=== PATIENT | male | born 1975 | race Caucasian/White ===

== ENCOUNTER 2017-02-12 14:23 | Outpatient (CLI) | payer MEDICAID | END 2017-02-12 14:24 | disposition critical access hospital (66) | LOC: EMS 14:23 | PROVIDERS: ATTEND Surgery | DX: R56.9 Unspecified convulsions (principal) | CPT/HCPCS: A0425; A0429 ==

== ENCOUNTER 2017-02-12 14:40 | Emergency (ER) | payer MEDICAID, OTHER ==
[2017-02-12 15:57] LABS: BASOPHILS # (AUTO) 0.1 10^3/uL (0.0-0.1); BASOPHILS % (AUTO) 2.1 %; EOSINOPHILS # (AUTO) 0.1 10^3/uL (0.0-0.7); EOSINOPHILS % (AUTO) 1.2 %; HGB - HEMOGLOBIN 13.1 g/dL (14.0-18.0); LYMPHOCYTES # (AUTO) 0.4 10^3/uL (1.5-3.5); MEAN CORPUSCULAR HEMOGLOBIN 33.6 pg (27.0-31.0); MEAN CORPUSCULAR HGB CONC 34.4 g/dL (32.0-36.0); MEAN CORPUSCULAR VOLUME 97.7 fL (80.0-94.0); MEAN PLATELET VOLUME 7.3 fL (7.4-11.4); MONOCYTES # (AUTO) 0.4 10^3/uL (0.0-1.0); MONOCYTES % (AUTO) 8.4 %; NEUTROPHILS # (AUTO) 3.4 10^3/uL (1.5-6.6); NEUTROPHILS % (AUTO) 78.3 %; RED BLOOD COUNT 3.89 10^6/uL (4.70-6.10); RED CELL DISTRIBUTION WIDTH 16.1 % (12.0-15.0); UNCORRECTED WHITE BLOOD COUNT 4.3 x10^3/uL; WHITE BLOOD COUNT 4.3 x10^3/uL (4.8-10.8)
[2017-02-12 16:06] LABS: CALCIUM 9.4 mg/dL (8.5-10.3); CREATININE 0.7 mg/dL (0.6-1.2); POTASSIUM 3.8 mmol/L (3.5-5.0)
[2017-02-12] MEDS ORDERED: LORazepam 2 MG/ML SYRINGE ONE (16:07)
[2017-02-12] MEDS ORDERED: MAGNESIUM SULFATE 2 GRAM 2 GM/50 ML BAG IV ONE (16:08)
[2017-02-12] MEDS ORDERED: SODIUM CHLORIDE FLUSH 0.9% 10 ML SYRINGE IVP ONE (16:08)
[2017-02-12] MEDS: MULTIVITAMIN 10 ML in SODIUM CHLORIDE 0.9% 1,000 ML IV STA (16:14)
[2017-02-12] MEDS: LORazepam 2 MG/ML SYRINGE IVP STA (16:14)
[2017-02-12] MEDS: MAGNESIUM SULFATE 2 GRAM 2 GM/50 ML BAG IV STA (16:15)
[2017-02-12] MEDS: THIAMINE INJ 100 MG, FOLIC ACID INJ 1 MG in SODIUM CHLORIDE 0.9% 100ML 100 ML IV STA (16:28)
[2017-02-12] MEDS: chlordiazePOXIDE 25 MG CAPSULE PO STA (17:47)
[2017-02-12] MEDS ORDERED: chlordiazePOXIDE 25 MG CAPSULE PO ONE (17:50)
--- NOTE | 2017-02-12 18:07 | ED Physician Documentation ---
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 denies: Headache, Head injury Endocrine: denies: Easy bruising / bleeding Immunocompromised: denies: Immunocompromised PD PAST MEDICAL HISTORY - Past Medical History Past Medical History: Yes Neuro: Seizure disorder - Past Surgical History Past Surgical History: No - Present Medications Home Medications: Ambulatory Orders Medication Instructions Recorded Confirmed chlordiazePOXIDE [Librium] 25 mg PO DAILY PRN #8 capsule 02/12/17 - Allergies Allergies/Adverse Reactions: Allergies Allergy/AdvReac Type Severity Reaction Status Date / Time No Known Drug Allergies Allergy Verified 02/12/17 14:53 - Social History Does the pt smoke?: Yes Smoking Status: Current every day smoker Does the pt drink ETOH?: Yes Does the pt have substance abuse?: Yes Substance Use and Type: Marijuana PD ED PE NORMAL - Vitals Vital signs reviewed: Yes (tachy shaky) - General General: Alert and oriented X 3 - HEENT HEENT: Atraumatic, PERRL - Neck Neck: No bony TTP - Cardiac Cardiac: RRR - Respiratory Respiratory: No respiratory distress, Clear bilaterally - Abdomen Abdomen: Soft, Non tender - Derm Derm: Normal color - Neuro Neuro: Alert and oriented X 3, No motor deficit, No sensory deficit, Normal speech Results - Vitals Vitals: Vital Signs - 24 hr 02/12/17 02/12/17 02/12/17 14:44 15:29 16:54 Temperature 37.1 C 37.1 C Heart Rate 114 H 93 81 Respiratory 18 16 16 Rate Blood Pressure 149/89 H 131/94 H 143/82 H O2 Saturation 96 97 97 02/12/17 17:23 Temperature 36.5 C Heart Rate 87 Respiratory 16 Rate Blood Pressure 146/94 H O2 Saturation 98 Oxygen O2 Source Room air - Labs Labs: Laboratory Tests 02/12/17 02/12/17 15:40 15:40 WBC 4.3 L RBC 3.89 L Hgb 13.1 L Hct 38.0 L MCV 97.7 H MCH 33.6 H MCHC 34.4 RDW 16.1 H Plt Count 123 L MPV 7.3 L Neut # 3.4 Lymph # 0.4 L [place] # 0.4 Eos # 0.1 Baso # 0.1 Absolute Nucleated RBC 0.00 Nucleated RBC % 0.0 Sodium 135 Potassium 3.8 Chloride 97 L Carbon Dioxide 22 Anion Gap 16.0 H BUN 13 Creatinine 0.7 Estimated GFR (MDRD) 124 Glucose 92 Calcium 9.4 Ethyl Alcohol 14.4 PD MEDICAL DECISION MAKING - ED course ED course: pt states he is uninsured and has no money care management / financial met with him and he is now signed up for Vidimax and reportedly will be effective to cover todays care gave banana bag and IV ativan and checked labs (nl) recommended pt be admitted but he prefers to go home on librium taper - says he has done so in the past he is hemodynamically stable and less shaky after benzos, no hallucinations and now he has insurance so he can get the meds Departure - Departure Disposition: 01 Home, Self Care Clinical Impression: Alcohol withdrawal seizure Qualifiers: Complication of substance-induced condition: uncomplicated Qualified Code(s): F10.230 - Alcohol dependence with withdrawal, uncomplicated Condition: Good Instructions: ED Seizure Alcohol Withdrawal Follow-Up: [facility] [Provider Group] [facility] [Provider Group] Prescriptions: chlordiazePOXIDE [Librium] 25 mg PO DAILY PRN #8 capsule PRN Reason: withdrawal symptoms Comments: I suggested you stay overnight in the hospital but your prefer to go home on medications to ease the withdrawal symptoms Take the medications as prescribed Do not drink alcohol while taking librium We provided you with a book of local resources to help you stop drinking Please return at any time if the symptoms become severe. Do not rive or operate machinery or climb trees/ladders/cliffs until all the symptoms have resolved and you are not needing medication Also your blood pressure was a little bit high and your blood counts *white blood cells, red blood cells, and platelets) were all a little bit low - please follow up with your primary care doctor to recheck your blood pressure and further evaluate your low blood counts. If you do not have a PMD, please call one of the community clinics to establish care Forms: Activity restrictions
[2017-02-12 18:30] VITALS: BP 150/90
== END 2017-02-12 18:38 | disposition home or self-care (01) ==
LOC: ED 14:40
DX: F10.230 Alcohol dependence with withdrawal, uncomplicated (principal); R03.0 Elevated blood-pressure reading, without diagnosis of hypertension; F17.200 Nicotine dependence, unspecified, uncomplicated
CPT/HCPCS: 36415; 80048; 80320; 85025; 96365; 96366; 96375; 99283; 99284

== ENCOUNTER 2017-11-14 16:38 | Emergency (ER) | payer MEDICAID ==
[2017-11-14] MEDS ORDERED: TETANUS/DIPHTHERIA/PERTUSSIS 0.5 ML SYRINGE IM ONE (16:48)
[2017-11-14] MEDS ORDERED: BUFFERED LIDOCAINE 10 ML SYRINGE SUBQ STA (16:48)
--- NOTE | 2017-11-14 16:51 | ED Physician Documentation ---
PD HPI HEAD INJURY - Stated complaint Stated Complaint: FACE LAC - History obtained from History obtained from: Patient, Family (mom) - History of Present Illness Mechanism of head injury: Other (42-year-old gentleman with a history of seizures, per the chart alcohol withdrawal seizures. He was at home today in a shed, he does not know what happened. All of a sudden he had blood coming down his face. He may or may not of falling or gotten hit by something. He really has no recollection of any accident.) Review of Systems Constitutional: reports: Reviewed and negative Cardiac: reports: Reviewed and negative Respiratory: reports: Reviewed and negative GI: reports: Reviewed and negative PD PAST MEDICAL HISTORY - Past Surgical History Past Surgical History: No - Present Medications Home Medications: Ambulatory Orders Medication Instructions Recorded Confirmed chlordiazePOXIDE [Librium] 25 mg PO Q6HR #30 capsule 05/18/17 - Allergies Allergies/Adverse Reactions: Allergies Allergy/AdvReac Type Severity Reaction Status Date / Time No Known Drug Allergies Allergy Verified 11/14/17 16:58 - Social History Does the pt smoke?: Yes Smoking Status: Current every day smoker Does the pt drink ETOH?: Yes Does the pt have substance abuse?: Yes - Immunizations Immunizations are current?: No - POLST Patient has POLST: No PD ED PE NORMAL - Vitals Vital signs reviewed: Yes - General General: Alert and oriented X 3, No acute distress, Other (He is slightly confused and very shaky, he appears to be in alcohol withdrawal but denies any recent alcohol.) - HEENT HEENT: PERRL, EOMI, Other (There is a 1.5 cm oblique laceration across the top of the nasal bridge with underlying tenderness but no deformity. There is blood in the mouth with a right-sided tongue laceration.) - Neck Neck: Supple, no meningeal sign, No bony TTP - Cardiac Cardiac: RRR, No murmur - Respiratory Respiratory: No respiratory distress, Clear bilaterally - Abdomen Abdomen: Normal bowel sounds, Soft, Non tender - Back Back: No CVA TTP, No spinal TTP - Derm Derm: Normal color, Warm and dry - Extremities Extremities: No edema, No calf tenderness / cord - Neuro Neuro: Alert and oriented X 3 (But slightly confused with poor recollection of the accident. He is shaky.) Eye Opening: Spontaneous Motor: Obeys Commands Verbal: Oriented GCS Score: 15 Results - Vitals Vitals: Vital Signs - 24 hr 11/14/17 11/14/17 11/14/17 16:45 17:38 18:28 Temperature 37 C 37.1 C Heart Rate 63 92 87 Respiratory 14 18 15 Rate Blood Pressure 153/99 H 139/89 H 153/88 H O2 Saturation 99 97 98 Oxygen O2 Source Room air - Labs Labs: Laboratory Tests 11/14/17 11/14/17 16:56 16:56 WBC 4.7 L RBC 3.91 L Hgb 13.3 L Hct 39.4 L MCV 100.8 H MCH 34.1 H MCHC 33.8 RDW 16.7 H Plt Count 127 L MPV 7.3 L Neut # (Auto) 3.5 Lymph # (Auto) 0.6 L [place] # (Auto) 0.4 Eos # (Auto) 0.0 Baso # (Auto) 0.1 Absolute Nucleated RBC 0.00 Nucleated RBC % 0.0 Sodium 134 L Potassium 3.5 Chloride 92 L Carbon Dioxide 24 Anion Gap 18.0 H BUN 9 Creatinine 0.8 Estimated GFR (MDRD) 106 Glucose 149 H Calcium 9.4 Total Bilirubin 1.0 AST 146 H ALT 96 H Alkaline Phosphatase 66 Total Protein 8.3 H Albumin 5.3 Globulin 3.0 Albumin/Globulin Ratio 1.8 Lipase 79 H Ethyl Alcohol < 5.0 - Rads (name of study) CT head, cervical spine, and facial bones Radiology: EMP read contemporaneously (DJD of the neck, lots of cavities with periapical abscesses and facial gas from the laceration without facial fracture. No head injury on CT.) Procedures - Laceration (location) Nasal bridge/face Length in cm: 1.5 Wound type: Curved Neurovascular status: Sensory intact, Motor intact, Vascular intact Anesthesia: Lidocaine 1%, With bicarb Wound Preparation: Chlorhexadine, Irrigated copiously NS Skin layer closure: Prolene, Interrupted, Size #-0 - enter number (6-0), Sutures - enter # (4) Other: Patient tolerated well, No complications, Neurovascular intact, Tetanus booster given Complexity: Simple PD MEDICAL DECISION MAKING - ED course ED course: 42-year-old gentleman with unrecollected trauma today, given the tongue laceration could be seizure. He has a history of alcohol withdrawal seizures but denies any recent drinking and he was asked several times about this and was persistent in his answers. He was advised not to drive for 6 months given the concern for seizure, the facial laceration was closed and relevant advanced imaging of the head, facial bones, and neck were without acute findings except for gas related to the nasal laceration, but also incidental findings including DJD of the neck and bad teeth which were discussed and follow-up advised. - Sepsis Event Vital Signs: Vital Signs - 24 hr 11/14/17 11/14/17 11/14/17 16:45 17:38 18:28 Temperature 37 C 37.1 C Heart Rate 63 92 87 Respiratory 14 18 15 Rate Blood Pressure 153/99 H 139/89 H 153/88 H O2 Saturation 99 97 98 Oxygen O2 Source Room air Departure - Departure Disposition: 01 Home, Self Care Clinical Impression: Elevated LFTs Altered mental status Qualifiers: Altered mental status type: transient alteration of awareness Qualified Code(s) : R40.4 - Transient alteration of awareness Head injury Qualifiers: Encounter type: initial encounter Qualified Code(s): S09.90XA - Unspecified injury of head, initial encounter Facial laceration Qualifiers: Encounter type: initial encounter Qualified Code(s): S01.81XA - Laceration without foreign body of other part of head, initial encounter Condition: Good Record reviewed to determine appropriate education?: Yes Instructions: ED Head Injury Closed Comments: No driving for 6 months as per state law as discussed. Call your doctor to arrange a follow-up appointment, make the next available appointment. In the interim, return anytime if worse or if new symptoms develop. Seems also reasonable to follow-up with a neurologist. Also a dentist. Discharge Date/Time: 11/14/17 18:28
[2017-11-14 17:04] LABS: BASOPHILS # (AUTO) 0.1 10^3/uL (0.0-0.1); BASOPHILS % (AUTO) 3.1 %; EOSINOPHILS % (AUTO) 0.6 %; HGB - HEMOGLOBIN 13.3 g/dL (14.0-18.0); LYMPHOCYTES # (AUTO) 0.6 10^3/uL (1.5-3.5); LYMPHOCYTES % (AUTO) 13.2 %; MEAN CORPUSCULAR HEMOGLOBIN 34.1 pg (27.0-31.0); MEAN CORPUSCULAR HGB CONC 33.8 g/dL (32.0-36.0); MEAN CORPUSCULAR VOLUME 100.8 fL (80.0-94.0); MEAN PLATELET VOLUME 7.3 fL (7.4-11.4); MONOCYTES # (AUTO) 0.4 10^3/uL (0.0-1.0); MONOCYTES % (AUTO) 9.2 %; NEUTROPHILS # (AUTO) 3.5 10^3/uL (1.5-6.6); NEUTROPHILS % (AUTO) 73.9 %; PLT - PLATELET COUNT 127 10^3/uL (130-450); RED BLOOD COUNT 3.91 10^6/uL (4.70-6.10); RED CELL DISTRIBUTION WIDTH 16.7 % (12.0-15.0); WHITE BLOOD COUNT 4.7 x10^3/uL (4.8-10.8)
[2017-11-14 17:14] LABS: ALBUMIN 5.3 g/dL (3.2-5.5); ALBUMIN/GLOBULIN RATIO 1.8 (1.0-2.2); ALKALINE PHOSPHATASE 66 IU/L (42-121); ALT ALANINE AMINOTRANSFERASE 96 IU/L (10-60); AST ASPARTATE AMINOTRANSFERASE 146 IU/L (10-42); BUN - BLOOD UREA NITROGEN 9 mg/dL (6-20); CALCIUM 9.4 mg/dL (8.5-10.3); CARBON DIOXIDE - CO2 24 mmol/L (21-32); CHLORIDE 92 mmol/L (101-111); CREATININE 0.8 mg/dL (0.6-1.2); GFR - MDRD 106 (>89); GLUCOSE 149 mg/dL (70-100); LIPASE 79 U/L (22-51); SODIUM 134 mmol/L (135-145); TOTAL PROTEIN 8.3 g/dL (6.7-8.2)
--- NOTE | 2017-11-14 17:47 | CT Report ---
Procedure Date: 11/14/2017 Accession Number: [id number] / [id number] Procedure: CT - Head W/O CPT Code: FULL RESULT: EXAM: CT HEAD EXAM DATE: 11/14/2017 05:19 PM. CLINICAL HISTORY: Head injury. Amnesia. Possible seizure. Laceration. Fall. COMPARISON: None. TECHNIQUE: Multiaxial CT images were obtained from the foramen magnum to the vertex. Reformats: Coronal. IV contrast: None. In accordance with CT protocol optimization, one or more of the following dose reduction techniques were utilized for this exam: automated exposure control, adjustment of mA and/or KV based on patient size, or use of iterative reconstructive technique. FINDINGS: Parenchyma: No intraparenchymal hemorrhage. No evidence of mass, midline shift, or CT findings of infarction. Welch-white differentiation is distinct. Extraaxial Spaces: Normal for age. No subdural or epidural collections identified. Ventricles: Normal in size and position. Sinuses and Orbits: Imaged paranasal sinuses, orbits, and mastoids show no significant abnormality. Bones: No evidence of fracture or calvarial defect. Other: Globes and orbits are unremarkable. Paranasal and inferior frontal soft tissue edema. IMPRESSION: 1. No acute intracranial abnormality is identified. 2. No acute fracture. RADIA
--- NOTE | 2017-11-14 17:57 | CT Report ---
Procedure Date: 11/14/2017 Accession Number: [id number] / [id number] Procedure: CT - Cervical Spine W/O CPT Code: FULL RESULT: EXAM: CT CERVICAL SPINE WITHOUT CONTRAST DATE: 11/14/2017 05:19 PM. HISTORY: Head inj, amnesia, ?sz. COMPARISONS: CT head and facial bones today. TECHNIQUE: Thin-section axial images were acquired of the cervical spine without contrast. Post-processing: Coronal and sagittal reformats. Other: None. In accordance with CT protocol optimization, one or more of the following dose reduction techniques were utilized for this exam: automated exposure control, adjustment of mA and/or KV based on patient size, or use of iterative reconstructive technique. FINDINGS: Alignment: No scoliosis or spondylolisthesis. Bones: No fracture or focal bone lesion from the craniocervical junction through C7-T1. Interspace Levels/Facets: Mild osteoarthritis of the pre-dens interval. Disk height loss and endplate osteophyte formation indicating degenerative disk disease which is mild at C3-C4, moderate at C4-C5, C5-C6, C6-C7, C7-T1. Mild multilevel facet and uncovertebral joint hypertrophy. Bony foraminal stenosis which is moderate on the left at C3-C4, moderate on the right at C4-C5, severe bilaterally at C5-C6, moderate bilaterally at C6-C7, mild bilaterally at C7-T1. Musculature: Normal. No fatty atrophy. Other: The paravertebral and prevertebral soft tissues are unremarkable. The lung apices are clear. IMPRESSION: 1. No fracture or subluxation from the craniocervical junction through C7-T1. 2. Moderate multilevel degenerative change as described above. RADIA
--- NOTE | 2017-11-14 18:12 | CT Report ---
Procedure Date: 11/14/2017 Accession Number: [id number] / [id number] Procedure: CT - Facial Bones W/O CPT Code: FULL RESULT: EXAM: CT MAXILLOFACIAL WITHOUT CONTRAST EXAM DATE: 11/14/2017 05:19 PM. CLINICAL HISTORY: Head inj, amnesia, ?nasal frx. Nasion laceration. COMPARISONS: CT head and cervical spine today. TECHNIQUE: Thin-section axial images were acquired of the face without contrast. Post-processing: Coronal and sagittal reformats. Other: None. In accordance with CT protocol optimization, one or more of the following dose reduction techniques were utilized for this exam: automated exposure control, adjustment of mA and/or KV based on patient size, or use of iterative reconstructive technique. FINDINGS: Soft Tissue: There is a small amount of soft tissue gas and soft tissue swelling at the nasion greatest to the left of midline. No radiopaque foreign body. Orbits: Symmetric and unremarkable. Bones: No facial bone fracture. Nasal bones are intact. There are fractures (presumably chronic) of bilateral teeth with root fragments remaining (teeth 2, 3, 5, 12, 13, 18, 19, 31. Also, there is a large 7 mm cavity involving the left maxillary second molar tooth (Tooth 15). There are periapical lucencies involving fractured teeth 2, 3, and 31. Temporomandibular Joints: The temporomandibular joints are symmetric and normally located. Sinuses: Normal. No mucosal thickening or fluid levels. Other: None. IMPRESSION: 1. Soft tissue gas at the nasion consistent with laceration. 2. No nasal or other facial bone fractures are identified. 3. Multiple likely chronic tooth fractures bilaterally as detailed above. Periapical lucencies which could reflect abscesses involving fractured teeth 2, 3, and 31. Large 7 mm dental cavity involving tooth 15. RADIA
[2017-11-14 18:30] VITALS: BP 153/88
== END 2017-11-14 18:28 | disposition home or self-care (01) ==
LOC: ED 16:38
DX: S01.21XA Laceration without foreign body of nose, initial encounter (principal); S01.512A Laceration without foreign body of oral cavity, initial encounter; S09.90XA Unspecified injury of head, initial encounter; W19.XXXA Unspecified fall, initial encounter; Y92.008 Other place in unspecified non-institutional (private) residence as the place of occurrence of the external cause; R40.4 Transient alteration of awareness; R94.5 Abnormal results of liver function studies; Z23 Encounter for immunization; Z86.69 Personal history of other diseases of the nervous system and sense organs; M47.892 Other spondylosis, cervical region; K02.9 Dental caries, unspecified; K04.7 Periapical abscess without sinus
CPT/HCPCS: 12011; 26750; 36415; 70450; 70486; 72125; 80053; 80320; 83690; 85025; 90471; 99283; 99284

== ENCOUNTER 2017-11-17 11:58 | Outpatient (CLI) | payer MEDICAID | END 2017-11-17 11:59 | disposition critical access hospital (66) | LOC: EMS 11:58 | PROVIDERS: ATTEND Surgery | DX: R56.9 Unspecified convulsions (principal) | CPT/HCPCS: A0425; A0429; A0999 ==

== ENCOUNTER 2017-11-17 12:06 | Emergency (ER) | payer MEDICAID ==
[2017-11-17 13:41] LABS: BASOPHILS % (AUTO) 0.3 %; EOSINOPHILS % (AUTO) 0.2 %; LYMPHOCYTES # (AUTO) 0.7 10^3/uL (1.5-3.5); MEAN CORPUSCULAR VOLUME 99.9 fL (80.0-94.0); MEAN PLATELET VOLUME 7.6 fL (7.4-11.4); MONOCYTES # (AUTO) 0.7 10^3/uL (0.0-1.0); MONOCYTES % (AUTO) 7.3 %; NEUTROPHILS # (AUTO) 8.1 10^3/uL (1.5-6.6); NEUTROPHILS % (AUTO) 85.2 %; PLT - PLATELET COUNT 153 10^3/uL (130-450); RED BLOOD COUNT 3.84 10^6/uL (4.70-6.10); RED CELL DISTRIBUTION WIDTH 16.4 % (12.0-15.0); WHITE BLOOD COUNT 9.5 x10^3/uL (4.8-10.8)
[2017-11-17 13:56] LABS: ALBUMIN 4.9 g/dL (3.2-5.5); ALBUMIN/GLOBULIN RATIO 1.4 (1.0-2.2); BILIRUBIN,TOTAL 1.1 mg/dL (0.2-1.0); MAGNESIUM 1.7 mg/dL (1.7-2.8); PHOSPHORUS 4.3 mg/dL (2.5-4.6); TOTAL PROTEIN 8.5 g/dL (6.7-8.2)
[2017-11-17 14:10] LABS: MUDS CUTOFF CONCENTRATIONS CUTOFF CONC BELOW:
[2017-11-17 14:13] LABS: BILIRUBIN,URINE NEGATIVE (NEGATIVE); GLUCOSE, URINE (UA) NEGATIVE (NEGATIVE); KETONES,URINE (UA) NEGATIVE (NEGATIVE); LEUKOCYTE ESTERASE, URINE NEGATIVE (NEGATIVE); NITRITE,URINE NEGATIVE (NEGATIVE); OCCULT BLOOD,URINE TRACE-INTA (NEGATIVE); PROTEIN,URINE 100 mg/dL (NEGATIVE); UROBILINOGEN,URINE 0.2 (NORMAL) E.U./dL (NORMAL)
--- NOTE | 2017-11-17 14:22 | CT Report ---
Procedure Date: 11/17/2017 Accession Number: [id number] / [id number] Procedure: CT - Head W/O CPT Code: FULL RESULT: EXAM: CT HEAD EXAM DATE: 11/17/2017 02:09 PM. CLINICAL HISTORY: Seizure, recent head trauma. COMPARISON: CT head, cervical spine and maxillofacial CT 11/14/2017.. TECHNIQUE: Multiaxial CT images were obtained from the foramen magnum to the vertex. Reformats: Coronal. IV contrast: None. In accordance with CT protocol optimization, one or more of the following dose reduction techniques were utilized for this exam: automated exposure control, adjustment of mA and/or KV based on patient size, or use of iterative reconstructive technique. FINDINGS: Parenchyma: No intraparenchymal hemorrhage. No evidence of mass, midline shift, or CT findings of infarction. Welch-white differentiation is distinct. Extraaxial Spaces: Normal for age. No subdural or epidural collections identified. Ventricles: Normal in size and position. Sinuses and Orbits: Imaged paranasal sinuses, orbits, and mastoids show no significant abnormality. Bones: No evidence of fracture or calvarial defect. Other: None. IMPRESSION: No acute intracranial abnormality. RADIA
[2017-11-17 14:25] LABS: AMPHETAMINE SCREEN,URINE NEGATIVE (NEGATIVE); BENZODIAZEPINES SCREEN, URINE NEGATIVE (NEGATIVE); CLARITY,URINE CLEAR (CLEAR); COCAINE SCREEN URINE NEGATIVE (NEGATIVE); METHADONE SCREEN, URINE NEGATIVE (NEGATIVE); METHAMPHETAMINES SCREEN, URINE NEGATIVE (NEGATIVE); OPIATE SCREEN, URINE NEGATIVE (NEGATIVE); OXYCODONE SCREEN, URINE NEGATIVE (NEGATIVE); PROPOXYPHENE SCREEN, URINE NEGATIVE (NEGATIVE); TRICYCLIC ANTIDEPRESSANT,URINE NEGATIVE (NEGATIVE)
[2017-11-17 14:30] LABS: BACTERIA,URINE None Seen /HPF (None Seen); CASTS, URINE 11-25 Hyaline Casts /LPF; MUCUS,URINE Few Strands; RBC,URINE 0-5 /HPF (0-5); SQUAMOUS EPITHELIAL CELL,UR RARE Squamous (<= Few)
--- NOTE | 2017-11-17 15:00 | ED Physician Documentation ---
PD HPI SEIZURE - Stated complaint Stated Complaint: SZ - Chief complaint Chief Complaint: Neuro - History obtained from History obtained from: Patient, EMS - History of Present Illness Timing - onset: Today Witnessed: Witnessed Number of seizures: Single Description of seizure activity: Generalized, Tonic clonic Injury during seizure: None History of seizures: Known seizure disorder, Prior EtOH wdrawal sz Contributing factors: No: Substance abuse, EtOH withdrawal, Benzo withdrawal Similar symptoms before: Work up / diagnostics, Treatment Recently seen: Not recently seen - Additional information Additional information: Patient is a 42 year old male with a known seizure disorder. According to patient and ems, patient had a witnessed seizure today while at work. the stated it lasted about 4 minutes and broke on its own. Patient was a little post ictal afterwards but on initial evaluation by me he was awake, alert and oriented. patient states that he is a recovering alcoholic but has not had a drink in 2 weeks. patient reports that his seizures in the past had either been due to alcohol withdrawal or not sleeping. Patient states that he currently is not sleeping well. Review of Systems Constitutional: denies: Fever, Chills Eyes: reports: Reviewed and negative Neurologic: reports: Seizure. denies: Altered mental status Immunocompromised: denies: Immunocompromised PD PAST MEDICAL HISTORY - Past Medical History Cardiovascular: None Respiratory: None Neuro: Seizure disorder Endocrine/Autoimmune: None GI: None : None HEENT: None Psych: None Musculoskeletal: None Derm: None - Past Surgical History Past Surgical History: No - Present Medications Home Medications: Ambulatory Orders Medication Instructions Recorded Confirmed chlordiazePOXIDE [Librium] 25 mg PO Q6HR #30 capsule 05/18/17 LORazepam [Ativan] 0.5 mg PO ONCE PRN #10 tablet 11/17/17 - Allergies Allergies/Adverse Reactions: Allergies Allergy/AdvReac Type Severity Reaction Status Date / Time No Known Drug Allergies Allergy Verified 11/14/17 16:58 - Social History Does the pt smoke?: Yes Smoking Status: Current every day smoker Does the pt drink ETOH?: Yes Does the pt have substance abuse?: Yes - Immunizations Immunizations are current?: No - POLST Patient has POLST: No PD ED PE NORMAL - Vitals Vital signs reviewed: Yes - General General: Alert and oriented X 3, No acute distress - Cardiac Cardiac: RRR - Respiratory Respiratory: No respiratory distress - Abdomen Abdomen: Soft - Extremities Extremities: No deformity - Neuro Neuro: Alert and oriented X 3, 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, No motor deficit, Normal speech Eye Opening: Spontaneous Motor: Obeys Commands Verbal: Oriented GCS Score: 15 PD ED PE EXPANDED - HEENT HEENT: Head injury (well healing laceration on patient's forehead) Results - Vitals Vitals: Vital Signs - 24 hr 11/17/17 11/17/17 12:07 14:06 Temperature 36.9 C 37.0 C Heart Rate 106 H 88 Respiratory 18 16 Rate Blood Pressure 143/100 H 110/85 H O2 Saturation 97 97 Oxygen O2 Source Room air - Labs Labs: Laboratory Tests 11/17/17 11/17/17 11/17/17 13:35 13:35 13:35 WBC 9.5 RBC 3.84 L Hgb 13.0 L Hct 38.3 L MCV 99.9 H MCH 34.0 H MCHC 34.0 RDW 16.4 H Plt Count 153 MPV 7.6 Neut # (Auto) 8.1 H Lymph # (Auto) 0.7 L [place] # (Auto) 0.7 Eos # (Auto) 0.0 Baso # (Auto) 0.0 Absolute Nucleated RBC 0.00 Nucleated RBC % 0.0 Sodium 133 L Potassium 4.3 Chloride 94 L Carbon Dioxide 27 Anion Gap 12.0 BUN 17 Creatinine 1.0 Estimated GFR (MDRD) 82 L Glucose 93 Calcium 10.0 Phosphorus 4.3 Magnesium 1.7 Total Bilirubin 1.1 H AST 159 H ALT 100 H Alkaline Phosphatase 60 Total Protein 8.5 H Albumin 4.9 Globulin 3.6 Albumin/Globulin Ratio 1.4 Lipase 52 H TSH 4.48 Urine Color Urine Clarity Urine pH Ur Specific [place] Urine Protein Urine Glucose (UA) Urine Ketones Urine Occult Blood Urine Nitrite Urine Bilirubin Urine Urobilinogen Ur Leukocyte Esterase Urine RBC Urine WBC Ur Squamous Epith Cells Urine Bacteria Urine Casts Urine Mucus Ur Microscopic Review Urine Culture Comments Urine Opiates Screen Ur Oxycodone Screen Urine Methadone Screen Ur Propoxyphene Screen Ur Barbiturates Screen Ur Tricyclics Screen Ur Phencyclidine Scrn Ur Amphetamine Screen U Methamphetamines Scrn U Benzodiazepines Scrn Urine Cocaine Screen U Cannabinoids Screen 11/17/17 14:04 WBC RBC Hgb Hct MCV MCH MCHC RDW Plt Count MPV Neut # (Auto) Lymph # (Auto) [place] # (Auto) Eos # (Auto) Baso # (Auto) Absolute Nucleated RBC Nucleated RBC % Sodium Potassium Chloride Carbon Dioxide Anion Gap BUN Creatinine Estimated GFR (MDRD) Glucose Calcium Phosphorus Magnesium Total Bilirubin AST ALT Alkaline Phosphatase Total Protein Albumin Globulin Albumin/Globulin Ratio Lipase TSH Urine Color YELLOW Urine Clarity CLEAR Urine pH 6.0 Ur Specific [place] 1.020 Urine Protein 100 H Urine Glucose (UA) NEGATIVE Urine Ketones NEGATIVE Urine Occult Blood TRACE-INTA Urine Nitrite NEGATIVE Urine Bilirubin NEGATIVE Urine Urobilinogen 0.2 (NORMAL) Ur Leukocyte Esterase NEGATIVE Urine RBC 0-5 Urine WBC 0-3 Ur Squamous Epith Cells RARE Squamous Urine Bacteria None Seen Urine Casts 11-25 Hyaline Casts Urine Mucus Few Strands Ur Microscopic Review INDICATED Urine Culture Comments NOT INDICATED Urine Opiates Screen NEGATIVE Ur Oxycodone Screen NEGATIVE Urine Methadone Screen NEGATIVE Ur Propoxyphene Screen NEGATIVE Ur Barbiturates Screen NEGATIVE Ur Tricyclics Screen NEGATIVE Ur Phencyclidine Scrn NEGATIVE Ur Amphetamine Screen NEGATIVE U Methamphetamines Scrn NEGATIVE U Benzodiazepines Scrn NEGATIVE Urine Cocaine Screen NEGATIVE U Cannabinoids Screen POSITIVE H - Rads (name of study) ct head Radiology: Final report received (no acute abnormality) PD MEDICAL DECISION MAKING - ED course Complexity details: reviewed old records, reviewed results, re-evaluated patient , considered differential, d/w patient ED course: Patient was seen and examined at bedside. IV access was gained and labs were drawn. due to the recent trauma imaging was ordered. When patient returned from imaging his diagnostics were reviewed. there was no acute abnormalities. A lengthy discussion was had with the patient concerning triggers. Patient stated that he did not want to start an agent at this time. patient required no further work up and was stable for discharge at this time. Patient had no seizure activity while in the emergency department. - Sepsis Event Vital Signs: Vital Signs - 24 hr 11/17/17 11/17/17 12:07 14:06 Temperature 36.9 C 37.0 C Heart Rate 106 H 88 Respiratory 18 16 Rate Blood Pressure 143/100 H 110/85 H O2 Saturation 97 97 Oxygen O2 Source Room air Departure - Departure Disposition: 01 Home, Self Care Clinical Impression: Seizure Condition: Good Instructions: ED Seizure Recurrent Follow-Up: primary,care provider [Other] - Within 3 Days Prescriptions: LORazepam [Ativan] 0.5 mg PO ONCE PRN #10 tablet PRN Reason: Seizure Comments: Your diagnostics today were within normal limits. Your seizures are becoming more frequent so it is important that you follow up with your doctor within the week. you have been prescribed ativan if you feel like you are going to have a seizure. you should make sure you get plenty of sleep, as not sleeping is one of the biggest triggers. you should return to the emergency department for repeat seizure activity.
[2017-11-17 15:21] VITALS: BP 115/85
== END 2017-11-17 15:21 | disposition home or self-care (01) ==
LOC: EDUNIT# → ED 12:06
DX: G40.909 Epilepsy, unspecified, not intractable, without status epilepticus (principal); F17.200 Nicotine dependence, unspecified, uncomplicated
CPT/HCPCS: 36415; 70450; 80053; 80306; 81001; 81003; 83690; 83735; 84100; 84443; 85025; 87086; 99283; 99284

== ENCOUNTER 2017-12-06 19:00 | Emergency (ER) | payer MEDICAID ==
[2017-12-06] MEDS ORDERED: LORazepam 0.5 MG TABLET PO STA (19:24)
--- NOTE | 2017-12-06 19:28 | ED Physician Documentation ---
PD HPI HEAD INJURY - Stated complaint Stated Complaint: LT EYE INJ - Chief complaint Chief Complaint: Neuro - History obtained from History obtained from: Patient, Family (mom) - History of Present Illness Mechanism of head injury: Other (42yo male with H/O Etoh W/D szs. Ran out of ativan rx (from ED) a few days ago and had sz today and hit L periorbital area and has a lac there. Tetanus unknown by pt, but UTD per MAR from prior visit.) Review of Systems Constitutional: denies: Fever, Chills Respiratory: denies: Dyspnea, Cough GI: denies: Abdominal Pain, Nausea, Vomiting PD PAST MEDICAL HISTORY - Past Medical History Cardiovascular: None Respiratory: None Neuro: Seizure disorder Endocrine/Autoimmune: None GI: None : None HEENT: None Psych: None Musculoskeletal: None Derm: None - Past Surgical History Past Surgical History: No - Present Medications Home Medications: Ambulatory Orders Medication Instructions Recorded Confirmed LORazepam [Ativan] 0.5 mg PO ONCE PRN #10 tablet 11/17/17 12/06/17 LORazepam [Ativan] 0.5 mg PO Q6H PRN #12 tablet 12/06/17 - Allergies Allergies/Adverse Reactions: Allergies Allergy/AdvReac Type Severity Reaction Status Date / Time No Known Drug Allergies Allergy Verified 12/06/17 19:19 - Social History Does the pt smoke?: Yes Smoking Status: Current every day smoker Does the pt drink ETOH?: Yes Does the pt have substance abuse?: Yes - Immunizations Immunizations are current?: No - POLST Patient has POLST: No PD ED PE NORMAL - Vitals Vital signs reviewed: Yes - General General: Alert and oriented X 3, No acute distress - HEENT HEENT: PERRL, EOMI, Other (1cm shallow lac upper lateral left eyelid There is some periorbital ecchymosis but absolutely no evidence of entrapment or facial bony tenderness.) - Neck Neck: Supple, no meningeal sign, No bony TTP - Neuro Neuro: Alert and oriented X 3, yield engineer 2-12 intact Eye Opening: Spontaneous Motor: Obeys Commands Verbal: Oriented GCS Score: 15 - Psych Psych: Normal mood, Normal affect Results - Vitals Vitals: Vital Signs - 24 hr 12/06/17 19:07 Temperature 37.5 C Heart Rate 90 Respiratory 17 Rate Blood Pressure 157/100 H O2 Saturation 100 Oxygen O2 Source Room air Procedures - Laceration (location) L eyelid Length in cm: 1 Wound type: Linear, Superficial Wound Preparation: Irrigated copiously NS Skin layer closure: Dermabond Other: Tetanus UTD Complexity: Simple PD MEDICAL DECISION MAKING - Sepsis Event Vital Signs: Vital Signs - 24 hr 12/06/17 19:07 Temperature 37.5 C Heart Rate 90 Respiratory 17 Rate Blood Pressure 157/100 H O2 Saturation 100 Oxygen O2 Source Room air Departure - Departure Disposition: 01 Home, Self Care Clinical Impression: Eyelid laceration, left Qualifiers: Encounter type: initial encounter Qualified Code(s): S01.112A - Laceration without foreign body of left eyelid and periocular area, initial encounter Benzodiazepine withdrawal Qualifiers: Complication of substance-induced condition: uncomplicated Qualified Code(s): F13.230 - Sedative, hypnotic or anxiolytic dependence with withdrawal, uncomplicated Condition: Good Record reviewed to determine appropriate education?: Yes Instructions: ED Laceration Facial Skin Glue Follow-Up: [facility] [Provider Group] Prescriptions: LORazepam [Ativan] 0.5 mg PO Q6H PRN #12 tablet PRN Reason: Anxiety Comments: Your blood pressure was elevated today on check into the emergency department. This does not mean that you have hypertension, it is a common phenomenon to come to the emergency department and have elevated blood pressure. I recommend that you see your primary care physician within the week to have it rechecked when you are feeling better. As discussed in the last visit, you are allowed to by state law to drive for the next 6 months due to seizure activity.
[2017-12-06 19:48] VITALS: BP 149/94
== END 2017-12-06 19:48 | disposition home or self-care (01) ==
LOC: ED 19:00
DX: S01.112A Laceration without foreign body of left eyelid and periocular area, initial encounter (principal); F13.230 Sedative, hypnotic or anxiolytic dependence with withdrawal, uncomplicated; W18.39XA Other fall on same level, initial encounter; R03.0 Elevated blood-pressure reading, without diagnosis of hypertension; F17.200 Nicotine dependence, unspecified, uncomplicated
CPT/HCPCS: 12011; 99283; A9270

== ENCOUNTER 2017-12-24 10:48 | Outpatient (CLI) | payer MEDICAID ==
[2017-12-24 18:46] LABS: BASOPHILS # (AUTO) 0.1 10^3/uL (0.0-0.1); BASOPHILS % (AUTO) 1.3 %; EOSINOPHILS % (AUTO) 0.6 %; HGB - HEMOGLOBIN 13.9 g/dL (14.0-18.0); LYMPHOCYTES # (AUTO) 1.7 10^3/uL (1.5-3.5); LYMPHOCYTES % (AUTO) 24.2 %; MEAN CORPUSCULAR HEMOGLOBIN 33.7 pg (27.0-31.0); MEAN CORPUSCULAR HGB CONC 33.8 g/dL (32.0-36.0); MEAN CORPUSCULAR VOLUME 99.8 fL (80.0-94.0); MEAN PLATELET VOLUME 6.9 fL (7.4-11.4); MONOCYTES # (AUTO) 0.5 10^3/uL (0.0-1.0); MONOCYTES % (AUTO) 7.7 %; NEUTROPHILS # (AUTO) 4.7 10^3/uL (1.5-6.6); NEUTROPHILS % (AUTO) 66.2 %; PLT - PLATELET COUNT 345 10^3/uL (130-450); RED BLOOD COUNT 4.13 10^6/uL (4.70-6.10); RED CELL DISTRIBUTION WIDTH 15.1 % (12.0-15.0); WHITE BLOOD COUNT 7.1 x10^3/uL (4.8-10.8)
[2017-12-24 19:14] LABS: ALBUMIN 4.7 g/dL (3.2-5.5); ALBUMIN/GLOBULIN RATIO 1.5 (1.0-2.2); BILIRUBIN,TOTAL 0.4 mg/dL (0.2-1.0); CALCIUM 9.2 mg/dL (8.5-10.3); CREATININE 0.7 mg/dL (0.6-1.2); TOTAL PROTEIN 7.9 g/dL (6.7-8.2)
[2017-12-24 19:22] LABS: THYROID STIMULATING HORMONE 2.44 uIU/mL (0.34-5.60)
[2017-12-24 19:34] LABS: FOLATE 10.95 ng/mL (5.90 - >24.8)
== END 2017-12-24 10:49 | disposition home or self-care (01) ==
LOC: LAB.N 10:48
PROVIDERS: ATTEND Physician Assistant Medical
DX: Z00.00 Encounter for general adult medical examination without abnormal findings (principal); F19.21 Other psychoactive substance dependence, in remission; R03.0 Elevated blood-pressure reading, without diagnosis of hypertension; Z72.0 Tobacco use; F10.11 Alcohol abuse, in remission
CPT/HCPCS: 36415; 80053; 82607; 82746; 84443; 85025

== ENCOUNTER 2019-11-07 12:33 | Outpatient (CLI) | payer MEDICAID | END 2019-11-07 12:34 | disposition critical access hospital (66) | LOC: EMS 12:33 | PROVIDERS: ATTEND Surgery | DX: R55 Syncope and collapse (principal) | CPT/HCPCS: A0425; A0429 ==

== ENCOUNTER 2019-11-07 13:24 | Emergency (ER) | payer MEDICAID ==
[2019-11-07] MEDS ORDERED: SODIUM CHLORIDE 0.9% 1,000 ML IV STA ×2 (13:33)
--- NOTE | 2019-11-07 13:38 | ED Physician Documentation ---
PD HPI ALTERED MENTAL STATUS - Stated complaint Stated Complaint: AMS - History obtained from History obtained from: Patient, Family, EMS - History of Present Illness Timing - onset: Today Timing - duration: Other (unknown) Timing - details: Now resolved Quality / character: Unresponsive Associated symptoms: Headache. No: Fever, Stiff neck, Dyspnea, Cough, NVD, Urinary sx Contributing factors: Substance abuse (alcohol, has had withdrawal seizures) Basline status: Alert and oriented X 3 Treatment CHIPS SCREEN TENDER: Other (none) Recently seen: Not recently seen - Additional information Additional information: 44-year-old male presents the emergency department with altered mental status today. The family states that they walked in and found him unconscious on the ground. Has a history of alcohol withdrawal seizures. Patient states that his last drink was 2 days ago. Nothing makes this better or worse. Has used Ativan in the past to help with withdrawal. He uses marijuana and cigarettes. Denies any trauma. He states he is having a headache. No nausea or vomiting. No diarrhea. No constipation. No numbness or tingling. Review of Systems Ten Systems: 10 systems reviewed and negative Constitutional: denies: Fever, Chills Ears: denies: Ear pain Nose: denies: Rhinorrhea / runny nose, Congestion Throat: denies: Sore throat Cardiac: denies: Chest pain / pressure GI: denies: Nausea, Vomiting, Diarrhea Skin: denies: Rash Musculoskeletal: denies: Neck pain, Back pain Neurologic: reports: Headache (Gradual onset, left-sided). denies: Focal weakness, Numbness, Head injury, LOC Psychiatric: denies: Depressed, Suicidal, Homicidal, Hallucinations, Delusions, Anxiety, Insomnia PD PAST MEDICAL HISTORY - Past Medical History Cardiovascular: None Respiratory: None Neuro: Seizure disorder Endocrine/Autoimmune: None GI: None : None HEENT: None Psych: None Musculoskeletal: None Derm: None - Past Surgical History Past Surgical History: No - Present Medications Home Medications: Ambulatory Orders Medication Instructions Recorded Confirmed LORazepam [Ativan] 0.5 mg PO ONCE PRN #10 tablet 11/17/17 12/06/17 LORazepam [Ativan] 0.5 mg PO Q6H PRN #12 tablet 12/06/17 - Allergies Allergies/Adverse Reactions: Allergies Allergy/AdvReac Type Severity Reaction Status Date / Time No Known Drug Allergies Allergy Verified 11/07/19 13:32 - Social History Does the pt smoke?: Yes Smoking Status: Current every day smoker Does the pt drink ETOH?: Yes Does the pt have substance abuse?: Yes - Immunizations Immunizations are current?: No - POLST Patient has POLST: No PD ED PE NORMAL - Vitals Vital signs reviewed: Yes - General General: Alert and oriented X 3, No acute distress, Well developed/nourished - HEENT HEENT: Moist mucous membranes - Neck Neck: Supple, no meningeal sign - Cardiac Cardiac: RRR, Strong equal pulses - Respiratory Respiratory: No respiratory distress, Clear bilaterally - Abdomen Abdomen: Soft, Non tender, Non distended - Derm Derm: Warm and dry, No rash - Extremities Extremities: No edema, No calf tenderness / cord - Neuro Neuro: Alert and oriented X 3 - Psych Psych: Normal mood, Normal affect Results - Vitals Vitals: Vital Signs - 24 hr 11/07/19 11/07/19 11/07/19 13:32 13:39 15:39 Temperature 37.0 C 37.0 C Heart Rate 89 89 77 Respiratory 16 15 20 Rate Blood Pressure 138/92 H 138/92 H 112/73 O2 Saturation 98 98 98 Oxygen O2 Source Room air - EKG (time done) 1331 Rate: Rate (enter#) (8) Rhythm: NSR Lackey: Normal Intervals: Normal OR QRS: Normal Ischemia: ST elevation c/w repol - Labs Labs: Laboratory Tests 11/07/19 11/07/19 11/07/19 13:55 13:55 13:55 WBC 5.1 RBC 3.98 L Hgb 13.0 L Hct 39.3 L MCV 98.7 H MCH 32.7 H MCHC 33.1 RDW 15.5 H Plt Count 323 MPV 8.6 Neut # (Auto) 2.6 Lymph # (Auto) 2.1 [place] # (Auto) 0.3 Eos # (Auto) 0.1 Baso # (Auto) 0.1 Absolute Nucleated RBC 0.00 Nucleated RBC % 0.0 Sodium 142 Potassium 3.8 Chloride 101 Carbon Dioxide 28 Anion Gap 13.0 BUN 10 Creatinine 0.9 Estimated GFR (MDRD) 91 Glucose 132 H Calcium 8.3 L Total Bilirubin 0.4 AST 35 ALT 21 Alkaline Phosphatase 58 Total Protein 7.1 Albumin 4.1 Globulin 3.0 Albumin/Globulin Ratio 1.4 Lipase 43 TSH 1.81 Urine Color Urine Clarity Urine pH Ur Specific [place] Urine Protein Urine Glucose (UA) Urine Ketones Urine Occult Blood Urine Nitrite Urine Bilirubin Urine Urobilinogen Ur Leukocyte Esterase Ur Microscopic Review Urine Culture Comments Salicylates < 6.0 Urine Opiates Screen Ur Oxycodone Screen Urine Methadone Screen Ur Propoxyphene Screen Acetaminophen < 10 L Ur Barbiturates Screen Ur Tricyclics Screen Ur Phencyclidine Scrn Ur Amphetamine Screen U Methamphetamines Scrn U Benzodiazepines Scrn Urine Cocaine Screen U Cannabinoids Screen Ethyl Alcohol 470.1 11/07/19 14:56 WBC RBC Hgb Hct MCV MCH MCHC RDW Plt Count MPV Neut # (Auto) Lymph # (Auto) [place] # (Auto) Eos # (Auto) Baso # (Auto) Absolute Nucleated RBC Nucleated RBC % Sodium Potassium Chloride Carbon Dioxide Anion Gap BUN Creatinine Estimated GFR (MDRD) Glucose Calcium Total Bilirubin AST ALT Alkaline Phosphatase Total Protein Albumin Globulin Albumin/Globulin Ratio Lipase TSH Urine Color YELLOW Urine Clarity CLEAR Urine pH 6.0 Ur Specific [place] <=1.005 Urine Protein NEGATIVE Urine Glucose (UA) NEGATIVE Urine Ketones NEGATIVE Urine Occult Blood NEGATIVE Urine Nitrite NEGATIVE Urine Bilirubin NEGATIVE Urine Urobilinogen 0.2 (NORMAL) Ur Leukocyte Esterase NEGATIVE Ur Microscopic Review NOT INDICATED Urine Culture Comments NOT INDICATED Salicylates Urine Opiates Screen NEGATIVE Ur Oxycodone Screen NEGATIVE Urine Methadone Screen NEGATIVE Ur Propoxyphene Screen NEGATIVE Acetaminophen Ur Barbiturates Screen NEGATIVE Ur Tricyclics Screen NEGATIVE Ur Phencyclidine Scrn NEGATIVE Ur Amphetamine Screen NEGATIVE U Methamphetamines Scrn NEGATIVE U Benzodiazepines Scrn NEGATIVE Urine Cocaine Screen NEGATIVE U Cannabinoids Screen NEGATIVE Ethyl Alcohol - Rads (name of study) Head CT Radiology: Prelim report reviewed, EMP read contemporaneously, See rad report (No acute intracranial abnormality) PD MEDICAL DECISION MAKING - ED course Complexity details: reviewed results, re-evaluated patient, considered differential, d/w patient, d/w family ED course: Patient with significant alcohol intoxication. His family is comfortable taking him home to allow him to sober there. Given resources for rehab and detox. Recommend a inpatient detox if he chooses to stop drinking. Patient and family counseled regarding signs and symptoms for which I believe and urgent re- evaluation would be necessary. Patient with good understanding of and agreement to plan and is comfortable going home at this time This document was made in part using voice recognition software. While efforts are made to proofread this document, sound alike and grammatical errors may occur. Departure - Departure Disposition: 01 Home, Self Care Clinical Impression: Alcoholism Alcohol intoxication Qualifiers: Complication of substance-induced condition: uncomplicated Qualified Code(s): F10.920 - Alcohol use, unspecified with intoxication, uncomplicated Condition: Stable Instructions: ED Alcohol Intoxication Follow-Up: Your,doctor in 1 week [Other] Comments: You are intoxicated today. You need to strongly consider going to rehab for your drinking. You will likely need a monitored detox facility as you have had seizures in the past. Return if you worsen. Discharge Date/Time: 11/07/19 16:00
[2019-11-07 14:03] LABS: BASOPHILS # (AUTO) 0.1 10^3/uL (0.0-0.1); BASOPHILS % (AUTO) 1.2 %; EOSINOPHILS # (AUTO) 0.1 10^3/uL (0.0-0.7); EOSINOPHILS % (AUTO) 2.1 %; LYMPHOCYTES # (AUTO) 2.1 10^3/uL (1.5-3.5); LYMPHOCYTES % (AUTO) 40.7 %; MEAN CORPUSCULAR HEMOGLOBIN 32.7 pg (27.0-31.0); MEAN CORPUSCULAR HGB CONC 33.1 g/dL (32.0-36.0); MEAN CORPUSCULAR VOLUME 98.7 fL (80.0-94.0); MEAN PLATELET VOLUME 8.6 fL (7.4-11.4); MONOCYTES # (AUTO) 0.3 10^3/uL (0.0-1.0); MONOCYTES % (AUTO) 6.2 %; NEUTROPHILS # (AUTO) 2.6 10^3/uL (1.5-6.6); NEUTROPHILS % (AUTO) 49.6 %; PLT - PLATELET COUNT 323 10^3/uL (130-450); RED BLOOD COUNT 3.98 10^6/uL (4.70-6.10); RED CELL DISTRIBUTION WIDTH 15.5 % (12.0-15.0); WHITE BLOOD COUNT 5.1 x10^3/uL (4.8-10.8)
[2019-11-07 14:40] LABS: ACETAMINOPHEN < 10 ug/mL (10-30); ALBUMIN 4.1 g/dL (3.2-5.5); ALBUMIN/GLOBULIN RATIO 1.4 (1.0-2.2); ALKALINE PHOSPHATASE 58 IU/L (42-121); ALT ALANINE AMINOTRANSFERASE 21 IU/L (10-60); AST ASPARTATE AMINOTRANSFERASE 35 IU/L (10-42); BILIRUBIN,TOTAL 0.4 mg/dL (0.2-1.0); BUN - BLOOD UREA NITROGEN 10 mg/dL (6-20); CALCIUM 8.3 mg/dL (8.5-10.3); CARBON DIOXIDE - CO2 28 mmol/L (21-32); CHLORIDE 101 mmol/L (101-111); CREATININE 0.9 mg/dL (0.6-1.2); GLUCOSE 132 mg/dL (70-100); LIPASE 43 U/L (22-51); SALICYLATE < 6.0 mg/dL; SODIUM 142 mmol/L (135-145); TOTAL PROTEIN 7.1 g/dL (6.7-8.2)
--- NOTE | 2019-11-07 14:57 | CT Report ---
PROCEDURE: HEAD WO INDICATIONS: altered mental status, seizure TECHNIQUE: Noncontrast 4.5 mm thick angled axial sections acquired from the foramen magnum to the vertex. For r adiation dose reduction, the following was used: automated exposure control, adjustment of mA and/or kV according to patient size. COMPARISON: None. FINDINGS: Image quality: Excellent. CSF spaces: Basal cisterns are patent. No extra-axial fluid collections. Ventricles are normal in size and shape. Brain: No midline shift. No intracranial masses or hemorrhage. Welch-white matter interface is norm al. Skull and face: Calvarium and visualized facial bones are intact, without suspicious lesions. Sinuses: Visualized sinuses and mastoids are clear. IMPRESSION: Negative head CT. No evidence acute stroke, hemorrhage, or mass. Reviewed by: Remington Bañuelos MD on 11/07/2019 1:56 PM RIN Approved by: Remington Bañuelos MD on 11/07/2019 1:56 PM RIN Station ID: [id number]
[2019-11-07 15:02] LABS: MUDS CUTOFF CONCENTRATIONS CUTOFF CONC BELOW:
[2019-11-07 15:04] LABS: BILIRUBIN,URINE NEGATIVE (NEGATIVE); GLUCOSE, URINE (UA) NEGATIVE (NEGATIVE); KETONES,URINE (UA) NEGATIVE (NEGATIVE); LEUKOCYTE ESTERASE, URINE NEGATIVE (NEGATIVE); NITRITE,URINE NEGATIVE (NEGATIVE); OCCULT BLOOD,URINE NEGATIVE (NEGATIVE); PROTEIN,URINE NEGATIVE (NEGATIVE); UROBILINOGEN,URINE 0.2 (NORMAL) E.U./dL (NORMAL)
[2019-11-07 15:07] LABS: CLARITY,URINE CLEAR (CLEAR)
[2019-11-07 15:15] LABS: AMPHETAMINE SCREEN,URINE NEGATIVE (NEGATIVE); BENZODIAZEPINES SCREEN, URINE NEGATIVE (NEGATIVE); COCAINE SCREEN URINE NEGATIVE (NEGATIVE); METHADONE SCREEN, URINE NEGATIVE (NEGATIVE); METHAMPHETAMINES SCREEN, URINE NEGATIVE (NEGATIVE); OPIATE SCREEN, URINE NEGATIVE (NEGATIVE); OXYCODONE SCREEN, URINE NEGATIVE (NEGATIVE); PROPOXYPHENE SCREEN, URINE NEGATIVE (NEGATIVE); TRICYCLIC ANTIDEPRESSANT,URINE NEGATIVE (NEGATIVE)
[2019-11-07 16:00] VITALS: BP 112/73
== END 2019-11-07 16:00 | disposition home or self-care (01) ==
LOC: EDUNIT# → ED 13:24
DX: F10.229 Alcohol dependence with intoxication, unspecified (principal); R94.31 Abnormal electrocardiogram [ECG] [EKG]; F17.210 Nicotine dependence, cigarettes, uncomplicated
CPT/HCPCS: 36415; 70450; 80053; 80306; 80307; 80320; 80329; 81001; 81003; 83690; 84443; 85025; 87086; 93005; 96360; 99284

== ENCOUNTER 2023-06-20 16:25 | Outpatient (CLI) | payer MEDICAID | END 2023-06-20 16:26 | disposition EMS.NT | LOC: EMS 16:25 | DX: F10.129 Alcohol abuse with intoxication, unspecified (principal) ==